=== PATIENT | female | born 1990 | race Hispanic/Latino ===

== ENCOUNTER 2018-12-19 05:46 | Emergency (ER) | payer SELFPAY ==
[~2018-12-19] VITALS: Ht 144.8 cm; Wt 76.0 kg
[2018-12-19 06:35] LABS: URINE BILIRUBIN - DIPSTICK NEGATIVE (NEGATIVE); URINE BLOOD DIPSTICK NEGATIVE (NEGATIVE); URINE COLOR YELLOW; URINE GLUCOSE - DIPSTICK NEGATIVE (NEGATIVE); URINE KETONE NEGATIVE (NEGATIVE); URINE LEUK ESTERASE NEGATIVE (NEGATIVE); URINE NITRITE - DIPSTICK NEGATIVE (Negative); URINE PROTEIN - DIPSTICK NEGATIVE (NEG-TRACE); URINE SPECIFIC GRAVITY >=1.030; URINE UROBILINOGEN - DIPSTICK 0.2 E.U./dL (0.2)
[2018-12-19] MEDS ORDERED: AMOXICILLIN500 MG PO (06:45)
[2018-12-19 06:58] VITALS: BP 119/77
== END 2018-12-19 06:58 | disposition home or self-care (01) | DRG 153 ==
LOC: ED 05:46
PROVIDERS: Emergency Medicine
DX: J02.9 Acute pharyngitis, unspecified (principal)